=== PATIENT | male | born 2000 | race Caucasian/White ===

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

== ENCOUNTER 2022-09-05 20:55 | Emergency (ER) | payer OTHER ==
[~2022-09-05] VITALS: Ht 182.9 cm; Wt 95.2 kg
== END 2022-09-06 00:09 | disposition home or self-care (01) ==
LOC: ER 20:55
DX: L27.1 Localized skin eruption due to drugs and medicaments taken internally (principal); T36.1X5A Adverse effect of cephalosporins and other beta-lactam antibiotics, initial encounter; J06.9 Acute upper respiratory infection, unspecified
CPT/HCPCS: A9270